=== PATIENT | male | born 1970 | race Caucasian/White ===

== ENCOUNTER 2016-09-30 19:47 | Emergency (ER) | payer MEDICAID ==
[2016-09-30 20:18] VITALS: TEMP 98; BMI 29.4
--- NOTE | 2016-09-30 21:22 | EDPRACDOC ---
- General Information Chief Complaint: Generalized Weakness Stated Complaint: HEADACHE Time Seen by Provider: 09/30/16 21:13 Information Source: Patient Mode Of Arrival: Car Home Medications: Home Medications Multivitamin [One Daily Multivitamin] 1 tab PO DAILY 07/04/14 Promethazine [Phenergan] 25 mg PO Q6-8H PRN 07/10/14 Acetaminophen [Tylenol Extra Strength] 1,000 mg PO Q8H PRN 06/08/16 Clindamycin HCl 150 mg PO DAILY 06/08/16 Naproxen Sodium [Aleve] 220 mg PO BID 06/08/16 Oxycodone HCl [Oxycodone Immediate Release] 15 mg PO Q6H PRN 07/07/16 Oxycodone Immediate Release [Oxycodone Immediate Release (OxyIR)] 5 mg PO Q4H PRN 07/07/16 Promethazine HCl [Phenergan] 12.5 mg PO Q6H PRN 07/07/16 Lorazepam 1 mg PO TID PRN #30 tablet 10/01/16 Ondansetron [Zofran Odt] 4 mg PO TID PRN #20 tab.rapdis 10/01/16 Oxycodone Immediate Release [Oxycodone Immediate Release (OxyIR)] 10 mg PO Q6H PRN #30 tab 10/01/16 Promethazine [Phenergan] 25 mg PO Q8H PRN #30 tab 10/01/16 Ranitidine HCl 300 mg PO DAILY #30 tablet 10/01/16 Venlafaxine HCl 75 mg PO DAILY #30 tablet 10/01/16 Allergies/Adverse Reactions: Allergies Allergy/AdvReac Type Severity Reaction Status Date / Time pantoprazole sodium Allergy Severe Itching Verified 07/07/16 07:23 [From Protonix] ciprofloxacin [From Cipro] Allergy Anaphylaxis Verified 07/07/16 07:23 * ciprofloxacin HCl Allergy Anaphylaxis Verified 07/07/16 07:23 [From Cipro] * - History of Present Illness Onset: 2 WEEKS Exact Onset of Symptoms: Unknown HPI: PT COMPLAINS OF GENERALIZED WEAKNESS, LEFT SIDED HEADACHE, LEFT EAR ACHE, LEFT NECK PAIN, "BURNING" IN STOMACH, PT HAS HX OF "STAGE 4 CANCER" OF LYMPH NODES, STATES LAST CHEMO/RADIATION WAS AT "TIE SIDING" PT STATES HAS BEEN IN BED SINCE, PT STATES THAT HE DOES NOT WANT TO TAKE TREATMENTS ANYMORE BECAUSE "IT'S KILLING ME", PT STATES OUT OF ALL MEDICATIONS. Symptoms Started: Reports: Gradually Symptoms Description: Constant Weakness: Bilateral: Generalized Symptoms: Reports: Weak. Denies: Change of vision, Difficult speech, Faintness , Imbalance, Numbness, Near Syncope, On Med questionable toxic, Syncope, Tinnitus, Vertigo Symptom Severity: Reports: Does not affect activitiy Relevant History of: Denies: Anemia, CVA, DM, Electrolyte disorder, GI Bleed, CO , TIA Associated signs and symptoms:: Reports: Headache, Nausea. Denies: GI Bleed, Chest pain, Diarrhea, Fever, Palpitations, Vomiting ED Past Medical History - History Reviewed Yes Nurses notes reviewed and agree except as marked - Patient Medical History Neurological History: Denies: Cerebrovascular Accident, Seizures Cardiac History: Denies: Coronary Artery Disease, Atrial Fibrillation, Heart Attack, Cardiomyopathy Respiratory History: Reports: COPD, Emphysema GI/ History: Reports: Gastroesophageal Reflux, Diverticulosis. Denies: Renal Disease, Renal Failure, Liver Failure Musculoskeletal History: Reports: Arthritis. Denies: Gout Psychological History: Denies: Depression, Anxiety, Schizophrenia Systemic History: Reports: Cancer (stage 4 (in lymph nodes-pt doesnt know name)) . Denies: Diabetes Additional Past Medical History: LEFT SIDE NECK CERVICAL NECROTIC LYMPH NODE BIOPSIED 05/28/16 Surgical History: Reports: Other (necrotizing fasciitis with testicular relocation to thigh pouch and diverti) - Family Medical History Reports: Hypertension, Diabetes, Stroke, Cardiac Disorders - Social Medical History Smoking Status: Heavy tobacco smoker (5 or more cigarettes/day or daily pipe/ cigar) Social History: Denies: Barbiturate Use, Benzodiazipine Use, Cocaine Use, Heroin Use, Methadone Use, MDMA (Ecstasy) Use ETOH: None Substance Abuse: None EDM Review of Systems - Review of Systems Constitutional: Fatigue, Weakness. negative: Chills, Fever Eyes: negative: Blurred Vision, Double Vision Ears: Pain. negative: Drainage Throat: negative: Pain Nose: negative: Congestion, Discharge Respiratory: negative: Cough, Shortness of Breath, Wheezing Cardiovascular: negative: Chest Pain, Palpitations Gastrointestinal: Nausea, Pain. negative: Diarrhea, Vomiting Genitourinary: negative: Dysuria, Frequency Neurological: Headache. negative: Dizziness, Numbness, Weakness Musculoskeletal: No Symptoms Reported Integumentary: No Symptoms Reported - Physical Exam Constitutional: Alert (Awake), No apparent distress Oriented to: Time, Person, Place Last recorded Vital Signs: Last Vital Signs Temp 98.0 F 09/30/16 20:12 Pulse 103 09/30/16 20:12 Resp 20 09/30/16 20:12 BP 153/81 09/30/16 20:12 Pulse Ox 98 09/30/16 20:12 Oxygen Pulse Oxygen Saturation 98 O2 Device Room Air Oxygen Flow Rate Fraction of Inspired Oxygen ( FIO2) - HEENT Head: Normal ( normocephalic) Eye Exam: Normal (PERRL, EOMI, Sclera white) Oropharynx: Normal (Pharynx:Moist without exudate,Gums-no swelling) Tympanic Membrane: Normal ENT EAC: Normal TMJ: Normal Nose: No Symptoms Reported (septum midline) Neck: Normal (FROM, trachea at midline) - Respiratory/Cardiovascular Respiratory: Normal - CTA (BBS clear to auscultation without adventitious sounds ) Cardiovascular: Normal (RRR without murmur, gallop or rub) - GI Auscultation: Normal (NABS) Palpation: Normal (Soft,No rebound or guarding, non distended) Tenderness: Non tender Apodaca's Sign: Negative - Musculoskeletal Back: Normal (Non-Tender) Extremities: Normal (Normal tone, Pulses 2+ No cyanosis or edema, FROM) - Integumentary Skin: Normal, Warm, Dry Lymphatics: Normal (no adenopathy) - Neurologic Memory Impaired: Normal Motor Function: Normal (Normal tone, Pulses 2+ No cyanosis or edema, FROM) Cranial Nerve: Normal (CN II-X11 intact sensation, strength 5/5) Cerebellar: Normal Mood Description: Normal Perception: Normal - Differential Diagnosis Dehydration, Dysrhythmia, Electrolyte disorder, Mass lession - Re-evaluation Re-evaluation 1 Re-evaluation Time: 22:52 (HEADACHE IMPROVED) - Results 09/30/16 22:06 09/30/16 22:06 - Diagnostic Imaging CT HEAD Image interpreted by: Radiologist CT HEAD WITHOUT CONTRAST TECHNIQUE: Contiguous axial images were obtained from the base of the skull through the vertex without intravenous contrast. COMPARISON: None. FINDINGS: No intracranial hemorrhage, mass effect, or midline shift. No hydrocephalus. The basilar cisterns are patent. No evidence of territorial infarct. Remote lacunar infarct versus perivascular space in the anterior limb of the left internal capsule. No intracranial fluid collection. Calvarium is intact. Included paranasal sinuses and mastoid air cells are well aerated. IMPRESSION: No acute intracranial abnormality. Remote lacunar infarct versus perivascular space in the anterior limb of the left internal capsule. Decision Time to Discharge: 00:03 - Departure Disposition: Home Condition: Stable Final Diagnosis: Acute headache Qualifiers: Headache type: unspecified Intractability: not intractable Qualified Code(s): R51 - Headache Instructions: Headache Education/Counseling Given To: Patient Education/Counseling Given Regarding: Diagnosis, Treatment, Prognosis, Follow Up Referrals: Irving Murdock MD [Staff Physician] - One Week Prescriptions: Lorazepam 1 mg PO TID PRN #30 tablet PRN Reason: Anxiety Ondansetron [Zofran Odt] 4 mg PO TID PRN #20 tab.rapdis PRN Reason: Nausea/Vomiting Oxycodone Immediate Release [Oxycodone Immediate Release (OxyIR)] 10 mg PO Q6H PRN #30 tab PRN Reason: Pain Promethazine [Phenergan] 25 mg PO Q8H PRN #30 tab PRN Reason: Nausea/Vomiting Ranitidine HCl 300 mg PO DAILY #30 tablet Venlafaxine HCl 75 mg PO DAILY #30 tablet Additional Instructions: CONTINUE YOUR USUAL MEDICATIONS BEFORE. YOU REQUESTED CONTACT INFORMATION FOR [facility], THE NUMBER IF .
[2016-09-30] MEDS ORDERED: NS 1,000 ML IV ONE (21:23)
[2016-09-30] MEDS ORDERED: HYDROmorphone 1 MG INJECTION IV ONE ×2 (21:23→22:27)
[2016-09-30] MEDS ORDERED: ONDANSETRON HCL 4 MG/2 ML VIAL IV ONE (21:23)
[2016-09-30] MEDS ORDERED: Famotidine 20 mg/50 ml RTU 20 MG/50 ML IVB IV ONE (21:24)
[2016-09-30 22:15] LABS: AUTOMATED BASOPHIL 1.1 % (0-2); AUTOMATED EOSINOPHIL 4.3 % (0-5); AUTOMATED LYMPH 28.6 % (17-44); AUTOMATED MONOCYTE 9.1 % (3-10); AUTOMATED NEUTROPHIL 56.9 % (45-76); MPV 9.3 fL (7.4-10.4)
--- NOTE | 2016-09-30 22:49 | DIRPT ---
CLINICAL DATA: Left-sided headache. History of neck cancer. EXAM: CT HEAD WITHOUT CONTRAST TECHNIQUE: Contiguous axial images were obtained from the base of the skull through the vertex without intravenous contrast. COMPARISON: None. FINDINGS: No intracranial hemorrhage, mass effect, or midline shift. No hydrocephalus. The basilar cisterns are patent. No evidence of territorial infarct. Remote lacunar infarct versus perivascular space in the anterior limb of the left internal capsule. No intracranial fluid collection. Calvarium is intact. Included paranasal sinuses and mastoid air cells are well aerated. IMPRESSION: No acute intracranial abnormality. Remote lacunar infarct versus perivascular space in the anterior limb of the left internal capsule. Electronically Signed By: Minna Bennett M.D. On: 09/30/2016 22:47
[2016-09-30 23:28] LABS: BLOOD UREA NITROGEN 13 MG/DL (9-20); CALC CORRECTED 9.1 MG/DL (8.4-10.2); CALCULATED OSMOLALITY 268 MOs/Kg (270-290); CHLORIDE 104 mEq/L (98-107); GLUCOSE 78 MG/DL (70-99); SODIUM LEVEL 140 mEq/L (137-146); TOTAL PROTEIN 6.6 G/DL (6.3-8.2)
[2016-10-01] MEDS ORDERED: HEPARIN 500 UNITS/5 ML (100 UNITS/ML) SYR FLUSH ONE (00:26)
[2016-10-01 00:34] VITALS: BP 125/78; PULSE 78
== END 2016-10-01 00:32 | disposition home or self-care (01) ==
LOC: ED 19:47
DX: R51 Headache (principal); C96.9 Malignant neoplasm of lymphoid, hematopoietic and related tissue, unspecified; J44.9 Chronic obstructive pulmonary disease, unspecified; K21.9 Gastro-esophageal reflux disease without esophagitis; F17.200 Nicotine dependence, unspecified, uncomplicated; Z79.899 Other long term (current) drug therapy; Z79.891 Long term (current) use of opiate analgesic
CPT/HCPCS: 36415; 70450; 80053; 83690; 85025; 96361; 96365; 96375; 96376; 99284; J1170; J1642; J2405; S0028